=== PATIENT | male | born 1990 | race Caucasian/White ===

== ENCOUNTER 2018-12-25 22:03 | Emergency (ER) | payer OTHER ==
[~2018-12-25] VITALS: Ht 188 cm; Wt 79.4 kg
[2018-12-25] MEDS ORDERED: Naprosyn500 MG PO (22:44)
== END 2018-12-25 22:55 | disposition home or self-care (01) ==
LOC: ER 22:03
DX: S43.52XA Sprain of left acromioclavicular joint, initial encounter (principal); S46.912A Strain of unspecified muscle, fascia and tendon at shoulder and upper arm level, left arm, initial encounter; Z88.0 Allergy status to penicillin; Z91.040 Latex allergy status; Z88.8 Allergy status to other drugs, medicaments and biological substances; W17.89XA Other fall from one level to another, initial encounter
CPT/HCPCS: 73030; 99283-25; A9270